=== PATIENT | female | born 1990 | race Caucasian/White ===

== ENCOUNTER 2020-02-21 01:57 | Outpatient (CLI) | payer OTHER, SELFPAY ==
[2020-02-21 17:59] LABS: SARS-CoV-2 RNA PCR Negative
== END 2020-02-21 01:58 | disposition home or self-care (01) ==
LOC: ANHCOVIDDT 01:57
PROVIDERS: Visit Provider Obstetrics & Gynecology
DX: Z01.812 Encounter for preprocedural laboratory examination (principal); Z20.828 Contact with and (suspected) exposure to other viral communicable diseases
CPT/HCPCS: 87635; C9803; U0003

== ENCOUNTER 2020-02-24 01:42 | Day surgery (SDC) | payer OTHER, SELFPAY ==
[2020-02-12 14:38] VITALS: BMI 32.5
[2020-02-24] VITALS (12 sets, daily range): BP systolic 94–157; BP diastolic 48–69; PULSE 58–89; RESP 13–20; TEMP 36.2–36.3; O2SAT 96–100
--- NOTE | 2020-02-24 07:10 | WPDANESEPPF ---
Anes - Initial Pre Proc Eval Procedure: Operation Date: 02/24/20 08:30 Proposed Procedures p Laparoscopic Removal Of Essure - Castro Mackey MD s Hysteroscopy, Rosalind Endometrial Ablation - Castro Mackey MD Date/Time: 02/24/20 07:10 Surgeon: Castro Mackey MD Pre Op Diagnosis: Foreign Body In Uterus/ Menorrhagia Patient Data Age: 29 Gender: F Height: 5 ft 5 in Weight: 88.63 kg Allergies Allergy/AdvReac Type Severity Reaction Status Date / Time No Known Allergies Allergy Mild Verified 02/12/20 14:18 Home Medications Medication Instructions Recorded Confirmed Type methylphenidate HCl [Ritalin] 20 mg PO BID 02/12/20 02/12/20 History Patient hx anesthesia problems: none Family hx anesthesia problems: none PMFSH Past Medical History Medical History (Updated 02/24/20 @ 07:10 by Ronald Wolfe MD) ADHD Obesity Family History Family History Father Hypertension Sibling Family history of learning disability Social History Social History Smoking status: Light tobacco smoker Tobacco type: cigarettes Smoking end date: 05/21/17 Alcohol intake: current Drinks per week: 6 Substance use: current Substance use type: marijuana Other substance usage details: marijuana every other month Living arrangements: with family Spiritual care concerns: No Anes - Eval Final PreProcedure Day of Procedure 02/24/20 07:10 Patient weight: obese Heart: regular rate and rhythm Lungs: clear to auscultation Airway: Mallampati scale class II Neurological: alert and oriented Last oral intake: >/= 8 hours ASA classification: II Emergent: no Anesthetic plan: proceed Anesthesia type and monitoring: general ETT and standard monitoring Informed Consent: The patient's anesthetic plan and its attendant risks and benefits were discussed with the patient/family/POA. Questions were solicited and answers provided to the satisfaction of the patient/family/POA.
[2020-02-24] MEDS: LACTATED RINGERS 1,000 ML 30 ML IV CONT ×2 (07:40→10:29)
[2020-02-24] MEDS: KETOROLAC 15 MG/ML VIAL (*BKC) IV PUSH (07:40)
[2020-02-24] MEDS: ACETAMINOPHEN 500 MG TABLET 1000 MG PO (07:40)
--- NOTE | 2020-02-24 08:18 | WPDHPUPDATE1 ---
History and Physical Update Update Date/Time: 02/24/20 08:18 History and Physical has been reviewed, including an updated exam of the patient. There are NO changes in the patient's condition. Risks, benefits, and alternatives have been discussed and questions answered. Patient agrees to proceed with procedure.
--- NOTE | 2020-02-24 10:37 | P.OP_ITS ---
Procedure Note - Detailed Date of procedure: 02/24/20 Pre-op diagnosis: Foreign Body In Uterus/ Menorrhagia Pelvic pain Post-op diagnosis: same ( pelvic adhesions, left tubal cyst) Procedure performed: adhesion lysis - 30 minutes, laparoscopic removal of foreign body from the uterus - Essure coils. , endometrial ablation, left salpingectomy, Description of procedure: The patient was taken the operating room. She was prepped and draped in the dorsal lithotomy position after induction of general anesthesia. A 5 mm left upper quadrant incision was made in the abdominal skin with a scalpel. A 5 mm trocar was inserted the intra-abdominal cavity under direct visualization of the scope. A 5 mm left lower quadrant incision was made with the scalp on the abdominal skin and a 5 mm trocar was inserted the intra- abdominal cavity under direct visualization of the scope. A 5 mm infraumbilical incision was made with scalpel and a 5 mm trocar was inserted into the intra- abdominal cavity under direct visualization of the scope. Extensive adhesiolysis was performed between omentum and the anterior abdominal wall inferiorly requiring 30 minutes.. Fallopian tubes were transected at the corneal region of the tube with scissors. coils were identified and grasped and removed from the tubal ostia. This was done in a bilateral fashion. It was uncertain whether all the coil in the left side was room moved entirely, there was a tubal cyst on the left. Using sharp and blunt dissection with cautery the left salpingectomy was performed. The tube was taken out at the left lower quadrant trocar site. Eventually, the larger coil on the left side was identified at the tubal ostia near the cornu and the coil was removed with slow traction.. The pelvis was irrigated with copious amounts of normal saline. The pneumoperitoneum was reduced. The trocars were removed. Speculum placed in vagina. Cervix was grasped with a tenaculum. The cervix was open about 1 cm or more. The uterus was measured through the vagina using a uterine sound. The endometrial cavity was 5.5 cm. The value was entered into the hand piece of the Rosalind ablation system. the device was inserted and the array was expanded. The balloon was inflated. Safety checks were performed and the energy cycle started. With Najib sec was completed the array was collapsed the balloon was collapsed. Device was withdrawn. Hysteroscope was inserted the intrauterine cavity and a well desiccated normal appearing endometrial cavity was observed. There were no coils in the cornua. The scope was withdrawn. The tenaculum and speculum removed. The procedures were completed. Sponge lap and needle counts were correct x2. Anesthesia: GETA Surgeon: Castro Mackey MD Estimated blood loss (mL): 50 Drains: No Packing: No Complications: No immediate complications Condition: stable Disposition: PACU Findings: Intra-abdominal adhesions between the omentum to the anterior abdominal wall. The uterus was also adherent to the anterior pelvis. There was a left sided fallopian tube cyst. There were some cysts on the left ovary that appeared normal. There was a normal vulva, vagina, and cervix. The endometrium appeared normal. There were no coils in the cornua tubal ostia of the uterus After coil removal.
[2020-02-24] MEDS: fentaNYL CITRATE INJ (*CRX) 100 MCG/2 ML VIAL 25 MCG IV PUSH ×2 (10:57→11:12)
[2020-02-24] MEDS: ONDANSETRON INJ 4 MG/2 ML VIAL IV PUSH (11:22)
[2020-02-24] MEDS: oxyCODONE HCL (*CRX) 5 MG TAB IR PO (12:43)
== END 2020-02-24 14:01 | disposition home or self-care (01) ==
PROVIDERS: PCP Emergency Medicine; Visit Provider Obstetrics & Gynecology
PROC: (CPT 49320; principal; 2020-02-24 08:30)
PROC: 0U5B8ZZ Destruction of Endometrium, Via Natural or Artificial Opening Endoscopic (ICD-10-PCS; CPT 58563; 2020-02-24 08:30)
DX: N92.0 Excessive and frequent menstruation with regular cycle (principal); N73.6 Female pelvic peritoneal adhesions (postinfective); N83.8 Other noninflammatory disorders of ovary, fallopian tube and broad ligament; R10.2 Pelvic and perineal pain; Z30.432 Encounter for removal of intrauterine contraceptive device; F90.9 Attention-deficit hyperactivity disorder, unspecified type; E66.9 Obesity, unspecified; Z68.32 Body mass index [BMI] 32.0-32.9, adult; F12.90 Cannabis use, unspecified, uncomplicated
CPT/HCPCS: 58661; 58563; 88300; 88302; A9270; J1100; J1170; J1885; J2250; J2370; J2405; J2704; J2710; J3010; J7030; J7120

== ENCOUNTER 2022-03-23 17:46 | Emergency (ER) | payer OTHER, SELFPAY ==
[2022-03-23 18:02] VITALS: BP 90/66; PULSE 64; RESP 16; TEMP 36.5; O2SAT 100
--- NOTE | 2022-03-23 18:17 | ED.HEATRA ---
HPI - Head Injury General Chief complaint: Head Injury Stated complaint: Fall/Head Injury Time Seen by Provider: 03/23/22 18:10 Source: patient Mode of arrival: ambulatory Limitations: no limitations History of Present Illness HPI Narrative: Brody is a 31-year-old female patient presenting to clinic today with complaints possible head injury. She reports that she was at work when a big container skid of computers fell on top of her and she fell back and hit her head. She reports that she has a headache rating it a 5/10 currently. Denies any loss of consciousness or initial neck pain. States her pain is to the occipital area of her head and she has a knot that area. Denies any dizziness, blurry vision, nausea, or vomiting Related Data Home Medications Medication Instructions Recorded Confirmed methylphenidate HCl 36 mg 36 mg PO DAILY 03/23/22 03/23/22 tablet,extended release 24 hr Allergies Allergy/AdvReac Type Severity Reaction Status Date / Time No Known Allergies Allergy Mild Verified 03/23/22 18:00 Review of Systems Review of Systems: Pertinent positives per HPI. Patient denies any fever, chills, rash, visual changes, dizziness, cough, runny nose, sore throat, shortness of breath, chest pain, palpitations, nausea, vomiting, diarrhea, constipation, abdominal pain, or any urinary issues. [facility] Past Medical History Medical History ADHD Obesity Family History Family History Father Hypertension Sibling Family history of learning disability Social History Social History Smoking status: Light tobacco smoker Tobacco type: cigarettes Smoking end date: 05/21/17 Alcohol intake: current Drinks per week: 6 Substance use: current Substance use type: marijuana Other substance usage details: marijuana every other month Spiritual care concerns: No Comments At the time of my signature, I reviewed and agree with the nursing past medical, surgical, social, and family history. There is no relevant family history pertinent to the patient complaint. Exam Narrative: General: Well-developed, well nourished, in no apparent distress Head: Normocephalic, atraumatic, golf ball size not to the back of the head- tender to palpation Eyes: Pupils equally round and reactive to light bilaterally, EOM intact, sclera and conjunctive clear, no discharge, lids normal Ears: TMs intact and clear, ear canals clear, no drainage, grossly hearing normal. Nose: Nares patent, no discharge, no inflammation, no sinus tenderness. Mouth: Oropharynx without lesions or masses, good dentition, MMM. Tongue midline, even rise and fall of uvula Neck: Supple, trachea midline, no enlargement of anterior or posterior cervical nodes, no thyroid masses or goiter palpable. no neck tender Cardio: Regular rate and rhythm, s1 and s2 normal, no murmur appreciated. Resp: Clear to auscultation bilaterally anteriorly and posteriorly, no rhonchi, rales, wheezing or rubs Musculoskeletal: No deformity, non-tender to palpation, grossly normal range of motion, muscle strength strong and equal, peripheral pulse strong, no edema, no cyanosis, normal gait and station Neuro: Alert and oriented x4 with normal speech, no focal deficits, cranial nerves I through XII intact, muscle strength 5 out of 5, sensation intact bilaterally, negative Romberg test Course Course Emergency Course: Portions of this record may have been created with voice recognition software. Level of Care: Express Care Visit Vital Signs Vital signs: Vital Signs Temperature 36.5 C 03/23/22 18:02 Pulse Rate 64 03/23/22 18:02 Respiratory Rate 16 03/23/22 18:02 Blood Pressure 90/66 L 03/23/22 18:02 Pulse Oximetry 100 03/23/22 18:02 Oxygen Delivery Room Air 03/23/22 18:02
== END 2022-03-23 18:27 | disposition home or self-care (01) ==
PROVIDERS: Emergency Provider Nurse Practitioner Family
DX: S06.0X0A Concussion without loss of consciousness, initial encounter (principal); W20.8XXA Other cause of strike by thrown, projected or falling object, initial encounter; Y99.0 Civilian activity done for income or pay; F90.9 Attention-deficit hyperactivity disorder, unspecified type; Z87.891 Personal history of nicotine dependence; E66.9 Obesity, unspecified; Z68.34 Body mass index [BMI] 34.0-34.9, adult
CPT/HCPCS: 99212; G0463

== ENCOUNTER 2023-03-04 01:51 | Emergency (ER) | payer BC, OTHER, SELFPAY ==
--- NOTE | ~2023-03-04 | XR_ITS ---
EXAMINATION: XR foot RT min 3V DATE: 03/04/2023 03:06 INDICATION: Right heel pain. TECHNIQUE: 3 views of right foot were obtained. COMPARISON: None. FINDINGS: Bone alignment is normal. No fracture. Joint spaces are normal. There is a small enthesophy te at plantar aspect of calcaneal tuberosity. IMPRESSION: 1. No fracture. Reviewed, dictated and finalized at location E. IMPRESSION: 1. No fracture.
[2023-03-04 01:52] VITALS: BP 107/79; PULSE 81; RESP 14; TEMP 36.4; O2SAT 98
--- NOTE | 2023-03-04 03:06 | ED.GENADULT ---
HPI - General Adult General Chief complaint: Extremity Injury, Lower Stated complaint: R heel Time Seen by Provider: 03/04/23 02:00 History of Present Illness HPI narrative: Patient 32-year-old presents the emergency department with chief complaint of right heel pain. Patient reports that they had a stress fracture in the left foot and reports that now that he started having pain in the right heel. Patient reports the pain is worse with movement and improved with rest. They report no trauma Related Data Home Medications Medication Instructions Recorded Confirmed methylphenidate HCl 36 mg 36 mg PO DAILY 03/23/22 03/23/22 tablet,extended release 24 hr Allergies Allergy/AdvReac Type Severity Reaction Status Date / Time No Known Allergies Allergy Mild Verified 03/04/23 02:01 Review of Systems Review of Systems: A 10 system review of systems was completed on the patient and is negative except for what is stated in the HPI. Nursing and ancillary documentation was reviewed. [facility] Past Medical History Medical History ADHD Obesity Family History Family History Father Hypertension Sibling Family history of learning disability Social History Social History Smoking status: Light tobacco smoker Tobacco type: cigarettes Smoking end date: 05/21/17 Alcohol intake: current Drinks per week: 6 Substance use: current Substance use type: marijuana Other substance usage details: marijuana every other month Living arrangements: with family Spiritual care concerns: No Exam Narrative: GENERAL: Well-appearing, well-nourished, and in no acute distress. HEAD: Normocephalic, atraumatic. EYES: PERRLA and EOMI. ENT: Nares clear, no rhinorrhea or epistaxis. Mucous membranes moist. NECK: Supple. CHEST: Clear to auscultation. No respiratory distress. HEART: Regular rate and rhythm. No murmur heard. Normal peripheral pulses. ABDOMEN: Soft, nontender, nondistended, normal active bowel sounds. EXTREMITIES: Normal range of motion there is tenderness to palpation of the right heel. No edema. SKIN: Warm, dry, no rash. NEURO: No focal deficits. Alert and oriented x3. PSYCH: Normal mood and affect. Course Vital Signs Vital signs: Vital Signs Temperature 36.4 C 03/04/23 01:52 Pulse Rate 81 03/04/23 01:52 Respiratory Rate 14 03/04/23 01:52 Blood Pressure 107/79 03/04/23 01:52 Pulse Oximetry 98 03/04/23 01:52 Oxygen Delivery Room Air 03/04/23 01:52 Temperature 36.4 C 03/04/23 01:52 Pulse Rate 81 03/04/23 01:52 Respiratory Rate 14 03/04/23 01:52 Blood Pressure 107/79 03/04/23 01:52 Pulse Oximetry 98 03/04/23 01:52 Oxygen Delivery Room Air 03/04/23 01:52 Medical Decision Making MDM Narrative Medical decision making narrative: Differential diagnosis includes contusion, fracture, planter fasciitis. Plain film x-ray showed no evidence of fracture. Vital Signs Vital Signs: Vital Signs Temperature 36.4 C 03/04/23 01:52 Pulse Rate 81 03/04/23 01:52 Respiratory Rate 14 03/04/23 01:52 Blood Pressure 107/79 03/04/23 01:52 Pulse Oximetry 98 03/04/23 01:52 Oxygen Delivery Room Air 03/04/23 01:52 Temperature 36.4 C 03/04/23 01:52 Pulse Rate 81 03/04/23 01:52 Respiratory Rate 14 03/04/23 01:52 Blood Pressure 107/79 03/04/23 01:52 Pulse Oximetry 98 03/04/23 01:52 Oxygen Delivery Room Air 03/04/23 01:52 Discharge Plan Discharge Clinical Impression: Acute pain of right foot Patient Disposition: Home, Self-Care Condition: Stable Instructions: Antibiotic Form, Plantar Fasciitis (ED), Arthralgia (ED) Prescriptions: New ibuprofen 800 mg tablet 800 mg PO TID PRN (Reason: pain) Qty: 30 0RF No A
== END 2023-03-04 03:47 | disposition home or self-care (01) ==
PROVIDERS: Emergency Provider Emergency Medicine
DX: M79.671 Pain in right foot (principal); F90.9 Attention-deficit hyperactivity disorder, unspecified type
CPT/HCPCS: 73630; 99283